=== PATIENT | female | born 1940 | race Hispanic/Latino ===

== ENCOUNTER 2025-01-06 20:37 | Inpatient (IN) | payer SELFPAY ==
[~2025-01-06] VITALS: Ht 157.5 cm; Wt 58.5 kg
--- NOTE | 2025-01-06 21:17 | ERN ---
General Chief Complaint: Mechanical Fall Stated Complaint: FALL Time Seen by MD: 20:46 Source: family History of Present Illness Initial Comments 84-year-old female past medical history hypertension and diabetes. She was taking a shower and immediately afterwards passed out falling onto her left side. Complaining of left wrist pain left hip pain and right shoulder pain. No history of dementia. Currently moaning in bed and not communicating well. Allergies: Coded Allergies: No Known Allergies (Unverified Allergy, Unknown, 01/06/25) Past Medical History Past Medical History: Diabetes-Type I, High Cholesterol, Hypertension Past Surgical History: None Constitutional: (-) chills, (-) diaphoresis, (-) fever, (-) malaise, (-) weakness, (-) other documentation EENTM: (-) eye pain, (-) blurred vision, (-) tearing, (-) double vision, (-) ear pain, (-) ear discharge, (-) nose pain, (-) nose congestion, (-) throat pain, (-) Throat swelling, (-) mouth pain, (-) tooth pain, (-) mouth swelling, (-) other documentation Respiratory: (-) cough, (-) orthopnea, (-) short of breath, (-) stridor, (-) wheezing, (-) other documentation Cardiovascular: (-) chest pain, (-) edema, (-) palpitations, (-) syncope, (-) dyspnea on exertion, (-) other documentation Gastrointestinal/Abdominal: (-) nausea, (-) vomiting, (-) diarrhea, (-) abdom inal pain, (-) abdominal distention, (-) constipation, (-) rectal bleeding, (-) dark stool/melena, (-) other documentation Musculoskeletal: (+) joint pain (Left wrist) Physical Exam General Appearance: (+) mild distress General Appearance comment Appears to be stated age. Head/Face Trauma: No Eye: bilateral eye normal inspection, bilateral eye PERRL, bilateral eye EOMI Ear, Nose, Throat: (-) hearing grossly normal, (-) normal ENT inspection, (-) moist mucous membraine, (-) normal pharynx, (-) normal TM, (-) abnormal TM, (-) pharyngeal erythema, (-) sinus drainange, (-) sinus pain, (-) tonsillar exudate, (-) tonsillar swelling, (-) nasal drip, (-) nasal congestion, (-) hearing decreased, (-) dry mucous membraine, (-) other documentation Neck Comment Patient's neck is in a C-collar. Respiratory: (+) chest non-tender, (+) lungs clear, (+) well ventilated Heart: (+) regular, (+) no gallop Vascular: (+) no edema, (+) normal peripheral pulse, (+) no JVD Gastrointestinal: (+) soft, (+) non-tender, (+) bowel sound present Results Laboratory and Microbiology Lab and Micro Result MDM Patient's left wrist is deformed I imagine she has a fracture. We will obtain plain films to rule this in her out. In addition I will get a head CT and a cervical spine CT as well as a right shoulder film. Cardiac workup initiated as well. Patient's CT scan of her head is negative CT scan of her neck is negative plain films of the left wrist shows a fracture in the distal radius. The right shoulder and chest x-ray plain films are also negative. Patient's lab work comes back with a normal CBC. Chemistry panel shows mild hyponatremia hypo kalemia but also evidence of an acute kidney injury with a creatinine of 1.3 and a BUN of 24. Troponin is negative blood glucose is 300. Based on the acute kidney injury performed an ultrasound of the patient's IVC and it did collapse with full breath and even with minimal breathing. I have bolused the patient a L of LR. I discussed the patient with the hospitalist service and they have agreed to admit her. ED Course Joint Reduction Joint Reduction : Conscious Sedation: No Reduction Attempts: 1 Pre-Procedure NV Exam: Yes Post-Procedure NV Exam: Yes Progress Patient has an obvious deformity in her left wrist. Plain films show a distal radial fracture. Twenty cc of lidocaine injected and joint distracted distally. Patient placed in a volar splint and a sling. DX & DISP Disposition: Inpatient Departure Impression: Primary Impression: ELIZABETH (acute kidney injury) Additional Impressions: Closed left radial fracture, Left ulnar fracture Condition: Stable Referrals: NONE (PCP) DONATO GUERRERO MD Jan 06, 2025 21:17
[2025-01-06 21:41] LABS: IMMATURE GRANULOCYTE ABSOLUTE 0.05 K/uL (0-1); NUCLEATED RED BLOOD CELLS 0.0 % (0.0-0.19); PLATELET COUNT (AUTO) 229 K/uL (130-400); RED BLOOD CELL COUNT(AUTO) 4.54 MIL/uL (4.00-5.50); RED CELL DISTRIBUTION WIDTH 12.4 % (11.0-15.5); WHITE BLOOD COUNT (AUTO) 7.7 K/uL (4.8-10.8)
[2025-01-06 21:50] LABS: CREATININE 1.3 mg/dL (0.5-1.0); GLOMERULAR FILTR. RATE CALC 41 mL/min (>90); GLUCOSE,RANDOM 304 mg/dL (70-105); SODIUM SERUM 135 mmol/L (136-145); UREA NITROGEN, BLOOD 24 mg/dL (7-18)
[2025-01-06 21:58] LABS: CREATINE KINASE, TOTAL 44 U/L (21-232)
[2025-01-06] MEDS: LIDOCAINE 1%-EPI 1:100,000 20 ML VIAL IJ SCH (22:30)
--- NOTE | 2025-01-06 22:37 | HMCIMG ---
EXAM: CT Cervical Spine without IV contrast. CLINICAL HISTORY: Fall, AMS. TECHNIQUE: Axial computed tomography images of the cervical spine without intravenous contrast. Sagittal and coronal reformatted images were generated. COMPARISON: None. FINDINGS: ALIGNMENT: Bony alignment is anatomic. DEGENERATIVE CHANGES: Multilevel cervical spondylosis with prominent marginal osteophytes. Mild disc space narrowing at the C5-6 and C6-7 levels with a circumferential disc bulge. No significant spinal canal or neural foraminal stenosis. Bilateral multilevel mild to moderate facet arthropathy, more pronounced at the C3-4 level on the right side. SOFT TISSUES: The prevertebral soft tissues are within normal limits. There are secretions in the right fossa of Rosenmuller. There is a 3 x 2.6 x 1.7 cm partially calcified exophytic hypodense nodule in the lower pole of the right lobe of the thyroid. BONES: No acute fracture or aggressively appearing osseous lesion. IMPRESSION: No acute cervical spine abnormality. Multilevel degenerative disc disease and facet arthropathy in the cervical spine. Small partially calcified exophytic hypodense nodule at the lower pole of the right lobe of the thyroid. Recommend sonographic correlation. /[place]
--- NOTE | 2025-01-06 22:40 | HMCIMG ---
EXAM: CT Head without IV contrast. CLINICAL HISTORY: Fall, AMS. TECHNIQUE: Axial computed tomography images of the head/brain without intravenous contrast. COMPARISON: None. FINDINGS: BRAIN: No evidence of acute hemorrhage, midline shift, or extra-axial collections. Atrophy. Periventricular hypodensities, suggestive of mild to moderate chronic ischemic changes secondary to small vessel disease. VENTRICLES: No hydrocephalus. ORBITS: The orbits are unremarkable. SINUSES AND MASTOIDS: The paranasal sinuses and mastoid air cells are clear. BONES: No fracture. SOFT TISSUES: Unremarkable. IMPRESSION: No acute intracranial abnormality. Mild to moderate chronic ischemic changes secondary to small vessel disease. /[place]
--- NOTE | 2025-01-06 22:52 | HMCIMG ---
EXAM: CR Chest, 1 view. CLINICAL HISTORY: Fall. Altered mental status. Dizziness. COMPARISON: None provided. FINDINGS: The lungs show no infiltrates or other acute findings. Mild subsegmental atelectasis in the left lung base. No pleural effusion or pneumothorax. The cardiomediastinal silhouette is within normal limits. Mild atherosclerotic aorta. No acute osseous abnormality. Mild osteopenia. Degenerative osseous changes. IMPRESSION: No acute cardiopulmonary pathology is evident. /[place]
--- NOTE | 2025-01-06 22:54 | HMCIMG ---
EXAM: CR Right Shoulder, 2 views. CLINICAL HISTORY: Fall. Rule out fracture. COMPARISON: None provided. FINDINGS: No acute fracture or aggressive appearing osseous lesion. Mild osteopenia. Mild to moderate osteoarthritis in the acromioclavicular and glenohumeral joints. Mild enthesopathy around the greater tubercle of the humerus. IMPRESSION: No acute bony abnormality is evident. Degenerative changes. /[place]
--- NOTE | 2025-01-06 22:56 | HMCIMG ---
EXAM: CR Left Wrist, 3 views CLINICAL HISTORY: Fall. Rule out fracture. COMPARISON: None provided. FINDINGS: Comminuted, displaced, acute fracture around the distal end of the radius with articular surface extension and dorsal tilt of the distal segment. Acute displaced fracture in the ulnar styloid process. Diffuse soft tissue swelling around the wrist. Mild osteopenia. Mild osteoarthritis. Atherosclerotic vascular calcifications. The carpal alignment is maintained. IMPRESSION: Comminuted, displaced, acute fracture around the distal end of the radius with articular surface extension and dorsal tilt of the distal segment. Acute displaced fracture in the ulnar styloid process. /[place]
--- NOTE | 2025-01-06 23:27 | HMCIMG ---
EXAM: CR Left Elbow, 2 views. CLINICAL HISTORY: GLF. COMPARISON: None provided. FINDINGS: No acute fracture or aggressive appearing osseous lesion. Mild osteoarthritis. No radiographic evidence of joint effusion. Scattered atherosclerotic vascular calcifications around the forearm region. IMPRESSION: No acute bony abnormality is evident. Mild osteoarthritis. /[place]
--- NOTE | 2025-01-06 23:42 | HMCIMG ---
EXAM: CR Left Forearm, 3 Views. CLINICAL HISTORY: GLF. COMPARISON: None provided. FINDINGS: Comminuted, displaced, acute fracture around the distal end of the radius with articular surface extension and dorsal tilt of the distal segment. Acute displaced fracture in the ulnar styloid process. Diffuse soft tissue swelling around the wrist. Mild osteopenia. Mild osteoarthritis. Atherosclerotic vascular calcifications. The remaining bones are intact. IMPRESSION: Comminuted, displaced, acute fracture around the distal end of the radius with articular surface extension and dorsal tilt of the distal segment. Acute displaced fracture in the ulnar styloid process. /[place]
[2025-01-06] MEDS: LACTATED RINGERS 1000ML IV STA (23:49)
[2025-01-07] VITALS (7 sets, daily range): BP systolic 137–159; BP diastolic 70–83; PULSE 63–74; RESP 16–20; TEMP 98.3–98.7; O2SAT 95–96
--- NOTE | 2025-01-07 01:22 | HMCIMG ---
EXAM: CR Left Wrist, 2 views CLINICAL HISTORY: Postreduction. COMPARISON: 01/06/2025. FINDINGS: Comminuted, displaced, acute fracture around the distal end of the radius with articular surface extension and dorsal tilt of the distal segment. Acute displaced fracture in the ulnar styloid process. Diffuse soft tissue swelling around the wrist. Mild osteopenia. Mild osteoarthritis. Atherosclerotic vascular calcifications. The carpal alignment is maintained. An immobilizing slab is in place. IMPRESSION: Comminuted, displaced, acute fracture around the distal end of the radius with articular surface extension and dorsal tilt of the distal segment. Acute displaced fracture in the ulnar styloid process. There is no significant change in post-reduction fracture alignment. /[place]
[2025-01-07] MEDS ORDERED: ALBUTEROL 0.083% 2.5 MG/3 ML INH IH PRN (01:30)
[2025-01-07] MEDS ORDERED: PoTASSium chloRIDE 20MEQ ER 20 MEQ ERTAB PO PRN (01:30)
[2025-01-07] MEDS ORDERED: PoTASSium chl 10% ELIXIR 20MEQ 20 MEQ/15 ML UDCUP PO PRN (01:30)
--- NOTE | 2025-01-07 01:38 | HP ---
[facility] HISTORY & PHYSICAL Date Patient Seen: Jan 07, 2025 Time of Visit: 01:30 Supervising Physician: Dr. Marylu Batres Primary Care Physician: Dr. Mendiola Outpatient Specialists: [ ] Inpatient Consults: [Ortho Services PROBLEM LIST: Ground level fall, POA Left radial fracture, x-ray showed Comminuted, displaced, acute fracture around the distal end of the radius with articular surface extension and dorsal tilt of the distal segment. POA Left ulnar fracture, POA Acute kidney injury, likely related to volume depletion from poor p.o. intake, POA DM type 2 with hyperglycemia Hyperlipidemia, POA History of hypertension, POA Plan: Admit to medical-surgical floor VS per unit protocol Keep patient NPO Multimodal pain relief Complete bedrest for now Orthopedic consult in a.m. Keep systolic blood pressure less than 160 P.r.n. hydralazine and labetalol Keep serum glucose less than 150 Replete electrolyte accordingly Continue LR at 75 cc an hour CBC, CMP, magnesium level daily Bilateral SCDs HPI: 84-year-old female with past medical history of hypertension, DM type 2, hyperlipidemia, who presented to ER as a trauma alert via EMS following ground level fall at home. Per report patient fell while she is taking shower, there is no reported loss of consciousness, use of aspirin or any anticoagulation. Afterwards patient developed acute pain to left arm, was then brought to ED for further medical evaluation. In ED stat CT of the head was done showed no acute intracranial abnormality, other pertinent imaging showed no acute injury however her left arm x-ray showed comminuted displaced acute fracture around the distal end of the radius with articular surface extension and dorsal tilt of the distal segment, there is also acute displaced fracture in the ulnar styloid process. Her initial CBC showed no acute infection or anemia, however her CMP showed mild ELIZABETH, with normal electrolytes level. Patient was seen and examined in ED with daughter present at bedside. Patient is Turkish-speaking only however daughter is able to translate during evaluation. ROS is limited due to sedation. No history of smoking, alcohol intake, or illicit drug use. PAST MEDICAL HX: see above PAST SURGICAL HX: noncontributory SOCIAL HISTORY: No tobacco, ETOH, or illicit drug use Coded Allergies: No Known Allergies (Unverified Allergy, Unknown, 01/06/25) REVIEW OF SYSTEMS: 12 point ROS reviewed with patient. Pertinent positives mentioned above. Otherwise negative. PHYSICAL EXAM: GENERAL: Lethargic, arousable, we will follow commands HEENT: EOMI, Sclera non icteric, moist mucosa NECK: Supple, no JVD, trachea midline LUNGS: Clear breath sounds bilaterally. No wheezes HEART: Regular rate and rhythm. Normal S1 and S2, without murmurs ABD: Abdomen soft, nontender. Bowel sounds present EXT: No clubbing cyanosis or edema, with arm sling and posterior arm cast to left arm NEURO: Lethargic Vital Signs (last 8hr) Date Time Temp Pulse Resp B/P (MAP) Pulse Ox O2 Delivery O2 Flow Rate FiO2 01/07/25 00:38 84 17 141/67 96 Room Air* 0 21 01/07/25 00:32 81 17 142/71 96 Room Air* 0 21 01/07/25 00:31 79 19 136/61 96 Room Air* 0 21 01/06/25 20:43 97.9 67 18 163/85 98 Room Air LABS: Hematology Labs: Test 01/06/25 21:34 Range/Units White Blood Count 7.7 4.8-10.8 K/uL Red Blood Count 4.54 4.00-5.50 MIL/uL Hemoglobin 13.8 12.0-16.0 g/dL Hematocrit 40.0 36-48 % Mean Corpuscular Volume 88.1 79-99 fL Mean Corpuscular Hemoglobin 30.4 27.0-33.0 pg Mean Corpuscular Hemoglobin Concent 34.5 32.0-36.0 g/dL Red Cell Distribution Width 12.4 11.0-15.5 % Platelet Count 229 130-400 K/uL Mean Platelet Volume 10.1 7.5-10.5 fL Immature Granulocyte % (Auto) 0.6 0-1 % Neutrophils (%) (Auto) 62.6 40.0-77.0 % Lymphocytes (%) (Auto) 26.0 21.0-51.0 % Monocytes (%) (Auto) 9.5 3.0-13.0 % Eosinophils (%) (Auto) 0.9 0.0-8.0 % Basophils (%) (Auto) 0.4 0.0-5.0 % Neutrophils # (Auto) 4.8 1.8-7.7 K/uL Lymphocytes # (Auto) 2.0 1.0-4.8 K/uL Monocytes # (Auto) 0.7 0.1-1.0 K/uL Eosinophils # (Auto) 0.07 0.00-0.70 K/uL Basophils # (Auto) 0.03 0.00-0.20 K/uL Absolute Immature Granulocyte (auto 0.05 0-1 K/uL Nucleated Red Blood Cells 0.0 0.0-0.19 % Chemistry Labs: Test 01/06/25 21:34 01/06/25 20:46 Range/Units Sodium Level 135 L 136-145 mmol/L Potassium Level 3.5 3.5-5.1 mmol/L Chloride Level 95 L 101-111 mmol/L Carbon Dioxide Level 30 21-32 mmol/L Blood Urea Nitrogen 24 H 7-18 mg/dL Creatinine 1.3 H 0.5-1.0 mg/dL Glomerular Filtration Rate Calc 41 >90 mL/min Random Glucose 304 H 70-105 mg/dL Total Calcium 9.3 8.5-10.1 mg/dL Total Creatine Kinase 44 21-232 U/L Troponin I High Sensitivity < 4.0 L 4-50 ng/L Whole Blood Glucose 292 H 70-110 MG/DL DIAGNOSTICS / RADIOLOGY RESULTS: EXAM: CR Left Forearm, 3 Views. CLINICAL HISTORY: GLF. COMPARISON: None provided. FINDINGS: Comminuted, displaced, acute fracture around the distal end of the radius with articular surface extension and dorsal tilt of the distal segment. Acute displaced fracture in the ulnar styloid process. Diffuse soft tissue swelling around the wrist. Mild osteopenia. Mild osteoarthritis. Atherosclerotic vascular calcifications. The remaining bones are intact. IMPRESSION: Comminuted, displaced, acute fracture around the distal end of the radius with articular surface extension and dorsal tilt of the distal segment. Acute displaced fracture in the ulnar styloid process. /[place] PLAN NEURO: Minimize central acting medications as possible. Maintain fall precautions, adequate lighting during the day PULMONARY: Supplemental 02 as needed. Maintain aspiration precautions at all times CARDIOVASCULAR: Follow hemodynamics. Vital signs per facility protocol GI & NUTRITION: Continue with nutritional support. Continue stool softeners and laxatives as needed. KIDNEYS & ELECTROLYTES: Strict monitoring of intake, output and overall fluid balance. Avoid nephrotoxic medications to the extent possible. Medications to be dosed according to renal function. Monitor electrolytes and replace as needed ENDOCRINE: Maintain blood glucose between 100-180 at all times. Hypoglycemia protocol in place INFECTIOUS DISEASE: Trend temperature, WBC and procalcitonin level Follow cultures, deescalate antibiotics as soon as possible. Panculture if new onset fever ONCOLOGY/HEMATOLOGY/COAGULATION: Monitor for s/s of bleeding Monitor hemoglobin, coagulation studies as needed SKIN: Pressure ulcer prevention per facility protocol Specialty mattress ORTHO/REHAB: Continue PT/OT Prophylaxis: Continue GI and DVT prophylaxis Code Status: Full Resuscitation Disposition: TBD Supervising physician: Dr. Marylu ESPINOZA,MARKELL Roy [facility] Jan 07, 2025 01:38
--- NOTE | 2025-01-07 01:40 | EKG ---
[facility] Test Date: 2025-01-06 Test Time: 21:04:17 Pat Name: HONG HAIDER Department: [facility]IP Room: 426 Gender: F Apartment Coordinator: [id number] : [id number] Requested By: DONATO GUERRERO Order Number: [id number] Reading MD: Venkata Luong Measurements Intervals [place] Rate: 64 P: 31 MA: 140 QRS: -10 QRSD: 89 T: 55 QT: 419 QTc: 434 Interpretive Statements Sinus rhythm Inferior infarct, old No previous ECG available for comparison Electronically Signed On 01-07-2025 18:29:57 CDT by Venkata Luong Please click the below link to view image of tracing.
[2025-01-07] MEDS: LIDOCAINE 1%-EPI 1:100,000 20 ML VIAL IJ ONE (01:57)
[2025-01-07] MEDS: LACTATED RINGERS 1000ML 1,000 ML IV SCH (02:05)
[2025-01-07] MEDS ORDERED: INSU200I4 SQ (04:35)
[2025-01-07] MEDS ORDERED: HYDR12.54 PO (04:35)
--- NOTE | 2025-01-07 10:49 | PN ---
[facility] PROGRESS NOTE Date Patient Seen: Jan 07, 2025 Time of Visit: 10:24 Supervising Physician: Dr. Ryan Ariza Primary Care Physician: Dr. Isaac Mendiola Outpatient Specialists: [ ] Inpatient Consults: Dr. Shahrzad Tam (orthopedic) PROBLEM LIST: Syncope resulting in Ground level fall, POA Left radial fracture, x-ray showed Comminuted, displaced, acute fracture around the distal end of the radius with articular surface extension and dorsal tilt of the distal segment. POA Left ulnar fracture, POA Acute kidney injury, likely related to volume depletion from poor p.o. intake, POA CHRONIC PROBLEM LIST: DM type 2 with hyperglycemia Hyperlipidemia, History of hypertension, Plan: Telemetry. Consult orthopedic: Dr. Shahrzad Tam Diagnostic tests: Echocardiogram, US carotid bilateral duplex Admit to medical-surgical floor Diet: NPO, pending surgical evaluation Acute kidney injury: NS 75 mL/HR GI prophylaxis Protonix 40 mg IV Q 24 hours DVT prophylaxis SCDs bilateral, after surgical evaluation if no surgery plan patient was started on anticoagulation therapy A.m. labs ordered INTERVAL HISTORY: 84-year-old female with past medical history of hypertension, DM type 2, hyperlipidemia, who presented to ER as a trauma alert via EMS following ground level fall at home. Per report patient fell while she is taking shower, there is no reported loss of consciousness, use of aspirin or any anticoagulation. Afterwards patient developed acute pain to left arm, was then brought to ED for further medical evaluation. In ED stat CT of the head was done showed no acute intracranial abnormality, other pertinent imaging showed no acute injury however her left arm x-ray showed comminuted displaced acute fracture around the distal end of the radius with articular surface extension and dorsal tilt of the distal segment, there is also acute displaced fracture in the ulnar styloid process. Her initial CBC showed no acute infection or anemia, however her CMP showed mild ELIZABETH, with normal electrolytes level. Patient was seen and examined in ED with daughter present at bedside. Patient is [place]an-speaking only however daughter is able to translate during evaluation. ROS is limited due to sedation. No history of smoking, alcohol intake, or illicit drug use. 01/07-patient was seen and assessed while resting in bed with the head of the bed elevated. Awake, alert, and oriented and in no acute distress. Accompanied by DOROTEO Steinberg patient at bedside. Patient's daughter reports that the patient fell lightheadedness, syncopal yesterday prior to the ground level resulting in fracture left ulnar. Patient takes blood pressure medicine patient has had no adjustments to it primary care provider's Dr. Isaac Mendiola. Patient's has had extremely elevated blood glucose levels per daughter's report. Nursing staff report no adverse events occurring overnight. Consults to orthopedic Dr. Tam. Ordered echocardiogram portable bedside and US carotid bilateral duplex. Depending on the results or if the patient we will require surgical i ntervention, then Cardiology will be consulted if cardiac clearance is needed. REVIEW OF SYSTEMS: 12 point ROS reviewed with patient. Pertinent positives mentioned above. Otherwise negative. PHYSICAL EXAM: GENERAL: Lethargic, arousable, we will follow commands HEENT: EOMI, Sclera non icteric, moist mucosa NECK: Supple, no JVD, trachea midline LUNGS: Clear breath sounds bilaterally. No wheezes HEART: Regular rate and rhythm. Normal S1 and S2, without murmurs ABD: Abdomen soft, nontender. Bowel sounds present EXT: No clubbing cyanosis or edema, with arm sling and posterior arm cast to left arm NEURO: Lethargic Vital Signs (last 8hr) Date Time Temp Pulse Resp B/P (MAP) Pulse Ox O2 Delivery O2 Flow Rate FiO2 01/07/25 08:21 98.8 65 16 137/80 Room Air 01/07/25 06:21 Room Air* 0 01/07/25 04:45 63 18 N/A Room Air 0.0 01/07/25 03:30 98.2 69 18 137/70 92 Room Air LABS: Hematology Labs: Test 01/06/25 21:34 Range/Units White Blood Count 7.7 4.8-10.8 K/uL Red Blood Count 4.54 4.00-5.50 MIL/uL Hemoglobin 13.8 12.0-16.0 g/dL Hematocrit 40.0 36-48 % Mean Corpuscular Volume 88.1 79-99 fL Mean Corpuscular Hemoglobin 30.4 27.0-33.0 pg Mean Corpuscular Hemoglobin Concent 34.5 32.0-36.0 g/dL Red Cell Distribution Width 12.4 11.0-15.5 % Platelet Count 229 130-400 K/uL Mean Platelet Volume 10.1 7.5-10.5 fL Immature Granulocyte % (Auto) 0.6 0-1 % Neutrophils (%) (Auto) 62.6 40.0-77.0 % Lymphocytes (%) (Auto) 26.0 21.0-51.0 % Monocytes (%) (Auto) 9.5 3.0-13.0 % Eosinophils (%) (Auto) 0.9 0.0-8.0 % Basophils (%) (Auto) 0.4 0.0-5.0 % Neutrophils # (Auto) 4.8 1.8-7.7 K/uL Lymphocytes # (Auto) 2.0 1.0-4.8 K/uL Monocytes # (Auto) 0.7 0.1-1.0 K/uL Eosinophils # (Auto) 0.07 0.00-0.70 K/uL Basophils # (Auto) 0.03 0.00-0.20 K/uL Absolute Immature Granulocyte (auto 0.05 0-1 K/uL Nucleated Red Blood Cells 0.0 0.0-0.19 % Chemistry Labs: Test 01/07/25 05:59 01/06/25 21:34 Range/Units Whole Blood Glucose 246 H 70-110 MG/DL Sodium Level 135 L 136-145 mmol/L Potassium Level 3.5 3.5-5.1 mmol/L Chloride Level 95 L 101-111 mmol/L Carbon Dioxide Level 30 21-32 mmol/L Blood Urea Nitrogen 24 H 7-18 mg/dL Creatinine 1.3 H 0.5-1.0 mg/dL Glomerular Filtration Rate Calc 41 >90 mL/min Random Glucose 304 H 70-105 mg/dL Total Calcium 9.3 8.5-10.1 mg/dL Total Creatine Kinase 44 21-232 U/L Troponin I High Sensitivity < 4.0 L 4-50 ng/L DIAGNOSTICS / RADIOLOGY RESULTS: [ ] PLAN NEURO: Minimize central acting medications as possible. Maintain fall precautions, adequate lighting during the day PULMONARY: Supplemental 02 as needed. Maintain aspiration precautions at all times CARDIOVASCULAR: Follow hemodynamics. Vital signs per facility protocol GI & NUTRITION: Continue with nutritional support. Continue stool softeners and laxatives as needed. KIDNEYS & ELECTROLYTES: Strict monitoring of intake, output and overall fluid balance. Avoid nephrotoxic medications to the extent possible. Medications to be dosed according to renal function. Monitor electrolytes and replace as needed ENDOCRINE: Maintain blood glucose between 100-180 at all times. Hypoglycemia protocol in place INFECTIOUS DISEASE: Trend temperature, WBC and procalcitonin level Follow cultures, deescalate antibiotics as soon as possible. Panculture if new onset fever ONCOLOGY/HEMATOLOGY/COAGULATION: Monitor for s/s of bleeding Monitor hemoglobin, coagulation studies as needed SKIN: Pressure ulcer prevention per facility protocol Specialty mattress ORTHO/REHAB: Continue PT/OT Prophylaxis: Continue GI and DVT prophylaxis Code Status: Full Resuscitation Disposition: BALJIT HERNANDEZ [facility] Jan 07, 2025 10:48
--- NOTE | 2025-01-07 12:53 | CONS ---
CONSULTATION NOTE Date of Service: Jan 07, 2025 Reason for Consultation: Left distal radius and ulna styloid fracture Requesting Physician: [ ] HISTORY OF PRESENT ILLNESS: 84-year-old right-hand dominant female status post ground level fall after becoming dizzy. patient has sustained an injury to the left wrist and was found in the emergency room to have a dorsally angulated left distal radius fracture with the ulnar styloid fracture. Orthopedics was consulted for the management of this. REVIEW OF SYSTEMS CONSTITUTIONAL: Denies fever, chills, or fatigue. HEAD/FACE: No signs of trauma. EENT: Denies eye pain, blurred vision, double vision, or light sensitivity. RESPIRATORY: Denies shortness of breath, cough, wheezing CARDIOVASCULAR: Denies chest pain, palpitation, syncope. Reports dizziness GASTROINTESTINAL/ABDOMINAL: Denies abdominal pain, constipation, diarrhea, nausea or vomiting GENITOURINARY: Denies dysuria or hematuria. MUSCULOSKELETAL: reports joint pain, tenderness, or trauma. INTEGUMENTARY: Denies rash or itchiness NEUROLOGICAL/PSYCH: Denies anxiety, depression, heat or cold intolerance. PAST MEDICAL HISTORY: Diabetes, hypertension, hyperlipidemia PAST SURGICAL HISTORY: Noncontributory PAST SOCIAL HISTORY: Right-hand dominant lives with daughter. Negative x3 FAMILY HISTORY: Noncontributory Coded Allergies: No Known Allergies (Unverified Allergy, Unknown, 01/06/25) PHYSICAL EXAM EYES: Anicteric. HENT: Moist Oral mucosa NECK: Supple LUNGS: Nonlabored breathing CARDIOVASCULAR: Regular rate ABDOMEN: Nondistended CENTRAL NERVOUS SYSTEM: Awake, alert, oriented x 3. No focal deficits. SKIN: No lacerations, no abrasions, no ecchymosis LYMPHATICS: No peripheral lymphadenopathy MUSCULOSKELETAL: Left upper extremity with a volar resting splint in place across distal radius. Patient wiggles them slightly but not definitive function of AIN or PIN nerves. Ulnar motor intact. Sensation intact to light touch in median ulnar and radial nerve distributions. Brisk capillary refill x5. Splint material blocking any flexion of the digits. EXTREMITIES: No cyanosis or clubbing BACK: Deferred GENITOURINARY: Deferred Vital Sign (Last 24 Hours) 01/07/25 01/07/25 01/07/25 03:30 06:21 08:21 Temp 98.8 Pulse 65 Resp 16 B/P (MAP) 137/80 Pulse Ox 92 O2 Delivery Room Air O2 Flow Rate 0 FiO2 21 LABS: Laboratory: Test 01/07/25 11:06 01/06/25 21:34 Range/Units Whole Blood Glucose 105 # 70-110 MG/DL White Blood Count 7.7 4.8-10.8 K/uL Red Blood Count 4.54 4.00-5.50 MIL/uL Hemoglobin 13.8 12.0-16.0 g/dL Hematocrit 40.0 36-48 % Mean Corpuscular Volume 88.1 79-99 fL Mean Corpuscular Hemoglobin 30.4 27.0-33.0 pg Mean Corpuscular Hemoglobin Concent 34.5 32.0-36.0 g/dL Red Cell Distribution Width 12.4 11.0-15.5 % Platelet Count 229 130-400 K/uL Mean Platelet Volume 10.1 7.5-10.5 fL Immature Granulocyte % (Auto) 0.6 0-1 % Neutrophils (%) (Auto) 62.6 40.0-77.0 % Lymphocytes (%) (Auto) 26.0 21.0-51.0 % Monocytes (%) (Auto) 9.5 3.0-13.0 % Eosinophils (%) (Auto) 0.9 0.0-8.0 % Basophils (%) (Auto) 0.4 0.0-5.0 % Neutrophils # (Auto) 4.8 1.8-7.7 K/uL Lymphocytes # (Auto) 2.0 1.0-4.8 K/uL Monocytes # (Auto) 0.7 0.1-1.0 K/uL Eosinophils # (Auto) 0.07 0.00-0.70 K/uL Basophils # (Auto) 0.03 0.00-0.20 K/uL Absolute Immature Granulocyte (auto 0.05 0-1 K/uL Nucleated Red Blood Cells 0.0 0.0-0.19 % Sodium Level 135 L 136-145 mmol/L Potassium Level 3.5 3.5-5.1 mmol/L Chloride Level 95 L 101-111 mmol/L Carbon Dioxide Level 30 21-32 mmol/L Blood Urea Nitrogen 24 H 7-18 mg/dL Creatinine 1.3 H 0.5-1.0 mg/dL Glomerular Filtration Rate Calc 41 >90 mL/min Random Glucose 304 H 70-105 mg/dL Total Calcium 9.3 8.5-10.1 mg/dL Total Creatine Kinase 44 21-232 U/L Troponin I High Sensitivity < 4.0 L 4-50 ng/L DIAGNOSTICS / RADIOLOGY: Two views of the left wrist showing left distal radius fracture with dorsal angulation and ulnar styloid fracture. There is a loss of inclination and height. ASSESSMENT: Left Colles fracture in 84-year-old right-hand dominant female PLAN: Discussed with the patient and her family that we could treat this with surgery but that it may not be worth the risk of the procedure. She is diabetic and her sugars significantly elevated this time. Her distal radius fracture shows displacement but could heal with an acceptable parameters. Since this is her non dominant hand, we elected to treat her conservatively. She was placed into a sugar-tong splint on the floor. She can follow up at [facility] in 2-3 weeks to be transitioned to a short-arm cast. Patient will need pain control. Instructions to ice and elevate. Continue to work on finger range motion to prevent stiffness. CHRISTOPHER BENTLEY MD Jan 07, 2025 12:53
--- NOTE | 2025-01-07 13:46 | NUR ---
DCP:HOME Pt currently lives at home with her dgt. Pt does not have any DME, home health, or provider services. Pt states that she is able to complete ADLs independently. PCP is Dr. Isaac Mendiola and uses [facility] for any RX needs. At [place] pt will want to go home and family can assist with transportation. Addendum: 01/07/25 at 1349 by AYE LEONARD SS Amended: Links added.
--- NOTE | 2025-01-07 18:20 | HMCSR ---
APPROVED REPORT EXAM: Two-dimensional and M-mode echocardiogram with Doppler and color Doppler. INDICATION ICD: Syncopal event resulting in ground level fall, fracture left ulnar 2D Dimensions RVDd3.6 cmLVEF(%)53.5 (>50%)LVED Vol(simp.)55.0 mL IVSd0.9 (0.7-1.1cm)FS(%)27 %LVES Vol(simp.)23.0 mL LVDd3.9 (3.8-5.6cm)LA (2D)3.0 (1.6-4.0cm)LVEF(%, simp.)57 % PWd0.8 (0.7-1.1cm)Ao Root(2D)2.7 (2.0-3.7cm)LA ESV INDEX (BP)20.93 mL/m2 IVSs1.1 cmLVOT diam1.8 (1.8-2.4cm) LVDs2.9 (2.5-4.0cm)IVC diam1.3 cm PWs1.0 cm Deformation Strain Apical 4-17.8 % Apical 2-16.6 % Apical 3-18.7 % Global Strain-17.7 % M-Mode Dimensions EPSS0.3 cm LA (MM)3.2 (1.6-4.0cm) Ao Root(MM)2.6 (2.0-3.7cm) Aortic Valve AoV Vmax1.3 m/Kostas Peak GR7.2 mmHgLVOT Vmax0.9 m/s AoV VTI0.3 mAo Mean GR4.4 mmHgLVOT VTI0.22 m YAHIR (VMAX)1.74 cm2AVA (VTI) 1.9 cm2 Mitral Valve MV E Vmax77.4 cm/sDECEL Mayr949 ms MV A Dtao417.5 cm/sP 1/2 T36 ms E/A ratio0.7MVA (PHT)6.1 cm2 TDI E/E' Tsiopw64.4E/E' Ozzmpse55.4 Medial E' Peak V4.00 cm/sLateral E' Peak V4.46 cm/s Pulmonary Valve PV Vmax0.8 m/sPV VTI0.20 mPV Mean GR1.5 mmHg PV Peak GR2.8 mmHg Tricuspid Valve TR Vmax2.4 m/sRAP (EST) 3 kuWoYNWI11.5 mmHg TR Peak GR22.5 mmHg Left Ventricle The left ventricle is normal size. GLS -18.0% There is normal LV segmental wall motion. There is norm al left ventricular wall thickness. The LVEF is > 55%. 3D volume EF 58% The left ventricular diastoli c function is normal. Right Ventricle The right ventricle is normal size. The right ventricular systolic function is normal. Atria The left atrium size is normal. The right atrium size is normal. Aortic Valve Aortic valve is trileaflet, thickend with possible small vegetation on non coronary cusp. No aortic r egurgitation is present. There is no aortic valvular stenosis. Mitral Valve The mitral valve is normal in structure. There is trace of mitral valve regurgitation noted. There is no mitral valve stenosis. Tricuspid Valve The tricuspid valve is normal in structure. There is trace of tricuspid valve regurgitation noted. Pulmonic Valve Pulmonic valve is not well visualized. There is trace of pulmonic valvular regurgitation. Great Vessels The aortic root is normal in size. The IVC is normal in size and collapses >50% with inspiration. Pericardium There is no pericardial effusion. Other Information Quality : Adequate Conclusion The left ventricle is normal size. The LVEF is > 55% with normal LV segmental wall motion. The left ventricular diastolic function is normal. The right ventricular systolic function is normal. Both atria are normal in size. Aortic valve is trileaflet, thickend with possible small vegetation on non coronary cusp. There is no pericardial effusion. Consider SLADE if clinically indicated.
[2025-01-08] VITALS (7 sets, daily range): BP systolic 150–182; BP diastolic 71–86; PULSE 62–89; RESP 16–20; TEMP 98.1–98.3; O2SAT 92–96
[2025-01-08 04:36] LABS: IMMATURE GRANULOCYTE ABSOLUTE 0.04 K/uL (0-1); NUCLEATED RED BLOOD CELLS 0.0 % (0.0-0.19); PLATELET COUNT (AUTO) 171 K/uL (130-400); RED BLOOD CELL COUNT(AUTO) 3.64 MIL/uL (4.00-5.50); RED CELL DISTRIBUTION WIDTH 12.5 % (11.0-15.5); WHITE BLOOD COUNT (AUTO) 6.9 K/uL (4.8-10.8)
[2025-01-08 04:52] LABS: CREATININE 0.6 mg/dL (0.5-1.0); GLOMERULAR FILTR. RATE CALC 90.0 mL/min (>90); GLUCOSE,RANDOM 177.0 mg/dL (70-105); PHOSPHORUS 3.0 mg/dL (2.5-4.9); SODIUM SERUM 140.0 mmol/L (136-145); UREA NITROGEN, BLOOD 19.0 mg/dL (7-18)
[2025-01-08] MEDS: MAGNESIUM 2GM PREMIX 50ML 50 ML IV PRN (05:12)
--- NOTE | 2025-01-08 11:14 | PN ---
[facility] PROGRESS NOTE Date Patient Seen: Jan 08, 2025 Time of Visit: 11:14 Supervising Physician: Dr. Ryan Ariza Primary Care Physician: Dr. Isaac Mendiola Outpatient Specialists: [ ] Inpatient Consults: Dr. Shahrzad Tam (orthopedic) PROBLEM LIST: Syncope resulting in Ground level fall, POA Left radial fracture, x-ray showed Comminuted, displaced, acute fracture around the distal end of the radius with articular surface extension and dorsal tilt of the distal segment. POA Left ulnar fracture, POA Acute kidney injury, likely related to volume depletion from poor p.o. intake, POA CHRONIC PROBLEM LIST: DM type 2 with hyperglycemia Hyperlipidemia, History of hypertension, Plan: Telemetry. Consult orthopedic: Dr. Shahrzad Tam, no surgical interventions required, patient to follow up once discharged Diagnostic tests: Echocardiogram, US carotid bilateral duplex GI prophylaxis Protonix 40 mg IV Q 24 hours DVT prophylaxis SCDs bilateral A.m. labs ordered INTERVAL HISTORY: 84-year-old female with past medical history of hypertension, DM type 2, hyperlipidemia, who presented to ER as a trauma alert via EMS following ground level fall at home. Per report patient fell while she is taking shower, there is no reported loss of consciousness, use of aspirin or any anticoagulation. Afterwards patient developed acute pain to left arm, was then brought to ED for further medical evaluation. In ED stat CT of the head was done showed no acute intracranial abnormality, other pertinent imaging showed no acute injury however her left arm x-ray showed comminuted displaced acute fracture around the distal end of the radius with articular surface extension and dorsal tilt of the distal segment, there is also acute displaced fracture in the ulnar styloid process. Her initial CBC showed no acute infection or anemia, however her CMP showed mild ELIZABETH, with normal electrolytes level. Patient was seen and examined in ED with daughter present at bedside. Patient is Hungarian-speaking only however daughter is able to translate during evaluation. ROS is limited due to sedation. No history of smoking, alcohol intake, or illicit drug use. 01/07-patient was seen and assessed while resting in bed with the head of the bed elevated. Awake, alert, and oriented and in no acute distress. Accompanied by DOROTEO Steinberg patient at bedside. Patient's daughter reports that the patient fell lightheadedness, syncopal yesterday prior to the ground level resulting in fracture left ulnar. Patient takes blood pressure medicine patient has had no adjustments to it primary care provider's Dr. Isaac Mendiola. Patient's has had extremely elevated blood glucose levels per daughter's report. Nursing staff report no adverse events occurring overnight. Consults to orthopedic Dr. Tam. Ordered echocardiogram portable bedside and US carotid bilateral duplex. Depending on the results or if the patient we will require surgical intervention, then Cardiology will be consulted if cardiac clearance is needed. 01/08-examined and seen by myself. Patient is resting in bed high May's position with daughter present sitting in a chair to the left side of the patient's bed. Watching television both friendly and conversant. Awake alert and oriented in no acute distress is the patient. Reviewed and discussed with patient diagnostic tests results, echocardiogram: The left ventricle is normal size. The LVEF is > 55% with normal LV segmental wall motion. The left ventricular diastolic function is normal. The right ventricular systolic function is normal. Both atria are normal in size. Aortic valve is trileaflet, thickend with possible small vegetation on non coronary cusp. There is no pericardial effusion. Discussed and reviewed laboratory results and vital signs. Vital signs stable. Afebrile. Awaiting US carotid duplex DON results which is pending discharge. A.m. labs ordered for tomorrow REVIEW OF SYSTEMS: 12 point ROS reviewed with patient. Pertinent positives mentioned above. Otherwise negative. PHYSICAL EXAM: GENERAL: Lethargic, arousable, we will follow commands HEENT: EOMI, Sclera non icteric, moist mucosa NECK: Supple, no JVD, trachea midline LUNGS: Clear breath sounds bilaterally. No wheezes HEART: Regular rate and rhythm. Normal S1 and S2, without murmurs ABD: Abdomen soft, nontender. Bowel sounds present EXT: No clubbing cyanosis or edema, with arm sling and posterior arm cast to left arm NEURO: Lethargic Vital Signs (last 8hr) Date Time Temp Pulse Resp B/P (MAP) Pulse Ox O2 Delivery O2 Flow Rate FiO2 01/08/25 08:25 98.2 68 16 168/78 92 Room Air 01/08/25 08:02 92 Room Air* 0 21 01/08/25 04:00 98.1 67 20 150/76 94 Room Air LABS: Hematology Labs: Test 01/08/25 04:17 Range/Units White Blood Count 6.9 4.8-10.8 K/uL Red Blood Count 3.64 L 4.00-5.50 MIL/uL Hemoglobin 11.2 L 12.0-16.0 g/dL Hematocrit 32.3 L 36-48 % Mean Corpuscular Volume 88.7 79-99 fL Mean Corpuscular Hemoglobin 30.8 27.0-33.0 pg Mean Corpuscular Hemoglobin Concent 34.7 32.0-36.0 g/dL Red Cell Distribution Width 12.5 11.0-15.5 % Platelet Count 171 # 130-400 K/uL Mean Platelet Volume 10.2 7.5-10.5 fL Immature Granulocyte % (Auto) 0.6 0-1 % Neutrophils (%) (Auto) 57.6 40.0-77.0 % Lymphocytes (%) (Auto) 29.7 21.0-51.0 % Monocytes (%) (Auto) 10.5 3.0-13.0 % Eosinophils (%) (Auto) 1.3 0.0-8.0 % Basophils (%) (Auto) 0.3 0.0-5.0 % Neutrophils # (Auto) 4.0 1.8-7.7 K/uL Lymphocytes # (Auto) 2.0 1.0-4.8 K/uL Monocytes # (Auto) 0.7 0.1-1.0 K/uL Eosinophils # (Auto) 0.09 0.00-0.70 K/uL Basophils # (Auto) 0.02 0.00-0.20 K/uL Absolute Immature Granulocyte (auto 0.04 0-1 K/uL Nucleated Red Blood Cells 0.0 0.0-0.19 % Chemistry Labs: Test 01/08/25 05:35 01/08/25 04:17 01/06/25 21:34 Range/Units Whole Blood Glucose 195 H 70-110 MG/DL Sodium Level 140 136-145 mmol/L Potassium Level 3.9 3.5-5.1 mmol/L Chloride Level 101 101-111 mmol/L Carbon Dioxide Level 23 21-32 mmol/L Blood Urea Nitrogen 19 H 7-18 mg/dL Creatinine 0.6 0.5-1.0 mg/dL Glomerular Filtration Rate Calc 90 >90 mL/min Random Glucose 177 H 70-105 mg/dL Total Calcium 7.9 L 8.5-10.1 mg/dL Phosphorus Level 3.0 2.5-4.9 mg/dL Magnesium Level 1.70 L 1.80-2.40 mg/dL Total Creatine Kinase 44 21-232 U/L Troponin I High Sensitivity < 4.0 L 4-50 ng/L DIAGNOSTICS / RADIOLOGY RESULTS: REASON: Syncopal event resulting in ground level fall, fracture left ulnar ORDERING PHYSICIAN: BALJIT HUSAIN [facility] PROCEDURE: ECHO CMP - ECHO 2-D COMPLETE APPROVED REPORT EXAM: Two-dimensional and M-mode echocardiogram with Doppler and color Doppler. INDICATION ICD: Syncopal event resulting in ground level fall, fracture left ulnar 2D Dimensions RVDd 3.6 cm LVEF(%) 53.5 (>50%) LVED Vol(simp.) 55.0 mL IVSd 0.9 (0.7-1.1cm) FS(%) 27 % LVES Vol(simp.) 23.0 mL LVDd 3.9 (3.8-5.6cm) LA (2D) 3.0 (1.6-4.0cm) LVEF(%, simp.) 57 % PWd 0.8 (0.7-1.1cm) Ao Root(2D) 2.7 (2.0-3.7cm) LA ESV INDEX (BP) 20.93 mL/m2 IVSs 1.1 cm LVOT diam 1.8 (1.8-2.4cm) LVDs 2.9 (2.5-4.0cm) IVC diam 1.3 cm PWs 1.0 cm Deformation Strain Apical 4 -17.8 % Apical 2 -16.6 % Apical 3 -18.7 % Global Strain -17.7 % M-Mode Dimensions EPSS 0.3 cm LA (MM) 3.2 (1.6-4.0cm) Ao Root(MM) 2.6 (2.0-3.7cm) Aortic Valve AoV Vmax 1.3 m/s Ao Peak GR 7.2 mmHg LVOT Vmax 0.9 m/s AoV VTI 0.3 m Ao Mean GR 4.4 mmHg LVOT VTI 0.22 m YAHIR (VMAX) 1.74 cm2 YAHIR (VTI) 1.9 cm2 Mitral Valve MV E Vmax 77.4 cm/s DECEL Time 206 ms MV A Vmax 107.5 cm/s P 1/2 T 36 ms E/A ratio 0.7 MVA (PHT) 6.1 cm2 TDI E/E' Medial 19.4 E/E' Lateral 17.4 Medial E' Peak V 4.00 cm/s Lateral E' Peak V 4.46 cm/s Pulmonary Valve PV Vmax 0.8 m/s PV VTI 0.20 m PV Mean GR 1.5 mmHg PV Peak GR 2.8 mmHg Tricuspid Valve TR Vmax 2.4 m/s RAP (EST) 3 mmHg RVSP 25.5 mmHg TR Peak GR 22.5 mmHg Left Ventricle The left ventricle is normal size. GLS -18.0% There is normal LV segmental wall motion. There is normal left ventricular wall thickness. The LVEF is > 55%. 3D volume EF 58% The left ventricular diastolic function is normal. Right Ventricle The right ventricle is normal size. The right ventricular systolic function is normal. Atria The left atrium size is normal. The right atrium size is normal. Aortic Valve Aortic valve is trileaflet, thickend with possible small vegetation on non coronary cusp. No aortic regurgitation is present. There is no aortic valvular stenosis. Mitral Valve The mitral valve is normal in structure. There is trace of mitral valve regur gitation noted. There is no mitral valve stenosis. Tricuspid Valve The tricuspid valve is normal in structure. There is trace of tricuspid valve regurgitation noted. Pulmonic Valve Pulmonic valve is not well visualized. There is trace of pulmonic valvular regurgitation. Great Vessels The aortic root is normal in size. The IVC is normal in size and collapses >50% with inspiration. Pericardium There is no pericardial effusion. Other Information Quality : Adequate Conclusion The left ventricle is normal size. The LVEF is > 55% with normal LV segmental wall motion. The left ventricular diastolic function is normal. The right ventricular systolic function is normal. Both atria are normal in size. Aortic valve is trileaflet, thickend with possible small vegetation on non coronary cusp. There is no pericardial effusion. Consider SLADE if clinically indicated. DICTATED BY: JESUS NGUYEN MD DATE: 01/07/25 1112 ELECTRONICALLY SIGNED BY: JESUS NGUYEN MD DATE: 01/07/25 1820 PLAN NEURO: Minimize central acting medications as possible. Maintain fall precautions, adequate lighting during the day PULMONARY: Supplemental 02 as needed. Maintain aspiration precautions at all times CARDIOVASCULAR: Follow hemodynamics. Vital signs per facility protocol GI & NUTRITION: Continue with nutritional support. Continue stool softeners and laxatives as needed. KIDNEYS & ELECTROLYTES: Strict monitoring of intake, output and overall fluid balance. Avoid nephrotoxic medications to the extent possible. Medications to be dosed according to renal function. Monitor electrolytes and replace as needed ENDOCRINE: Maintain blood glucose between 100-180 at all times. Hypoglycemia protocol in place INFECTIOUS DISEASE: Trend temperature, WBC and procalcitonin level Follow cultures, deescalate antibiotics as soon as possible. Panculture if new onset fever ONCOLOGY/HEMATOLOGY/COAGULATION: Monitor for s/s of bleeding Monitor hemoglobin, coagulation studies as needed SKIN: Pressure ulcer prevention per facility protocol Specialty mattress ORTHO/REHAB: Continue PT/OT Prophylaxis: Continue GI and DVT prophylaxis Code Status: Full Resuscitation Disposition: BALJIT HERNANDEZ AGACNP Jan 08, 2025 11:14
[2025-01-08] MEDS ORDERED: MAGNESIUM 2GM PREMIX 50ML 50 ML IV PRN (11:30)
[2025-01-08] MEDS ORDERED: PHARMACY COMMUNICATION MISC SCH (12:00)
[2025-01-08] MEDS: LACTULOSE 20 GM/30 ML UDCUP PO ONE (18:12)
[2025-01-09] VITALS (7 sets, daily range): BP systolic 147–177; BP diastolic 67–88; PULSE 66–71; RESP 16–18; TEMP 98.3–98.4; O2SAT 94–96
[2025-01-09 04:48] LABS: IMMATURE GRANULOCYTE ABSOLUTE 0.04 K/uL (0-1); NUCLEATED RED BLOOD CELLS 0.0 % (0.0-0.19); PLATELET COUNT (AUTO) 200 K/uL (130-400); RED BLOOD CELL COUNT(AUTO) 4.16 MIL/uL (4.00-5.50); RED CELL DISTRIBUTION WIDTH 12.4 % (11.0-15.5); WHITE BLOOD COUNT (AUTO) 8.8 K/uL (4.8-10.8)
[2025-01-09 05:25] LABS: ASPARTATE AMINOTRANSFERASE 21.0 U/L (10-37); CREATININE 0.6 mg/dL (0.5-1.0); GLOMERULAR FILTR. RATE CALC 90.0 mL/min (>90); GLUCOSE,RANDOM 182.0 mg/dL (70-105); SODIUM SERUM 139.0 mmol/L (136-145); TOTAL PROTEIN, SERUM 7.2 g/dL (6.0-8.3); UREA NITROGEN, BLOOD 10.0 mg/dL (7-18)
[2025-01-09] MEDS ORDERED: INSULIN DEGLUDEC 15 UNIT SQ SCH (09:00)
--- NOTE | 2025-01-09 16:11 | HMCIMG ---
EXAM: US Duplex Bilateral Carotid and Vertebral Arteries. CLINICAL HISTORY: Syncopal event that led to a ground level fall and fracture of left ulnar TECHNIQUE: Real-time ultrasound scan of the bilateral carotid and vertebral arteries, 2-D espino scale, with color Doppler flow and spectral waveform analysis. COMPARISON: None provided. FINDINGS: RIGHT COMMON CAROTID ARTERY: Calcified plaque at the carotid bulb. No occlusion or significant stenosis. PSV = 45 cm/s RIGHT INTERNAL CAROTID ARTERY: No occlusion or significant stenosis. PSV = 69 cm/s RIGHT EXTERNAL CAROTID ARTERY: No occlusion or significant stenosis. PSV = 111 cm/s RIGHT VERTEBRAL ARTERY: Antegrade flow. PSV = 40 cm/s RIGHT ICA/CCA RATIO: Within normal limits (1.5). LEFT COMMON CAROTID ARTERY: Few calcified and non-calcified plaques present. No occlusion or significant stenosis. PSV = 57 cm/s LEFT INTERNAL CAROTID ARTERY: Few calcified and non-calcified plaques present. No occlusion or significant stenosis. PSV = 88 cm/s LEFT EXTERNAL CAROTID ARTERY: No occlusion or significant stenosis. PSV = 59 cm/s LEFT VERTEBRAL ARTERY: Antegrade flow. PSV = 46 cm/s LEFT ICA/CCA RATIO: Within normal limits (1.5). SOFT TISSUES: No incidental abnormalities. IMPRESSION: 1. No hemodynamically significant stenosis in the bilateral carotid or vertebral arteries. /[place]
--- NOTE | 2025-01-09 16:41 | DS ---
[facility] DISCHARGE SUMMARY Date Patient Seen: Jan 09, 2025 Time of Visit: 16:31 Supervising Physician: Dr. Ryan Ariza Primary Care Physician: Dr. Isaac Mendiola Outpatient Specialists: [ ] Inpatient Consults: Dr. Shahrzad Tam (orthopedic) PROBLEM LIST: Syncope resulting in Ground level fall, POA -Echocardiogram:LVEF > 55%, with normal LV segmental wall motion. -US carotid bilateral duplex:No hemodynamically significant stenosis in the bilateral carotid or vertebral arteries Left radial fracture, x-ray showed Comminuted, displaced, acute fracture around the distal end of the radius with articular surface extension and dorsal tilt of the distal segment. POA Left ulnar fracture, POA Acute kidney injury, likely related to volume depletion from poor p.o. intake, POA, resolved CHRONIC PROBLEM LIST: DM type 2 with hyperglycemia Hyperlipidemia, History of hypertension, Plan: Telemetry. Consult orthopedic: Dr. Shahrzad Tam, no surgical interventions required, patient to follow up once discharged Diagnostic tests: Echocardiogram, US carotid bilateral duplex GI prophylaxis Protonix 40 mg IV Q 24 hours DVT prophylaxis SCDs bilateral HOSPITAL COURSE: Patient presented to the hospital, status post syncopal event at home resulting in Left radial fracture, x-ray showed Comminuted, displaced, acute fracture ar ound the distal end of the radius with articular surface extension and dorsal tilt of the distal segment with a ulnar fracture. Dr. Shahrzad Tam : Discussed with the patient and her family that we could treat this with surgery but that it may not be worth the risk of the procedure. She is diabetic and her sugars significantly elevated this time. Her distal radius fracture shows displacement but could heal with an acceptable parameters. Since this is her non dominant hand, we elected to treat her conservatively. Syncopal workup included echocardiogram:The left ventricle is normal size. The LVEF is > 55% with normal LV segmental wall motion. The patient is hemodynamically stable. Normal Echo, Normal carotids, Normal CT Head wo contrast, and normal telemetry during during hospitalization.. Additionally patient was educated on not being left alone also discussed with the patient's daughter that we did not want the patient to do activities of daily living or to be left by herself. There was agreement to this that the patient would not be left alone and the patient would not be using in motor machinery or driving car and they also agreed to that to. The patient's PCP has been contacted and the patient will have an appointment tomorrow afternoon which is Friday, January 10, [address] Isaac Mendiola. Has been cleared by ortho to where she can be discharged home using the sling she will be provided discharge instructions and follow up appointment with Dr. Shahrzad Tam within 2-3 weeks for a short cast. The patient and family are in agreement with the discharge plan which includes following up with primary care provider within 2-3 days for a wellness check, Dr. Isaac Mendiola. HPI (per admitting provider) 84-year-old female with past medical history of hypertension, DM type 2, hyperlipidemia, who presented to ER as a trauma alert via EMS following ground level fall at home. Per report patient fell while she is taking shower, there is no reported loss of consciousness, use of aspirin or any anticoagulation. Afterwards patient developed acute pain to left arm, was then brought to ED for further medical evaluation. In ED stat CT of the head was done showed no acute intracranial abnormality, other pertinent imaging showed no acute injury however her left arm x-ray showed comminuted displaced acute fracture around the distal end of the radius with articular surface extension and dorsal tilt of the distal segment, there is also acute displaced fracture in the ulnar styloid process. Her initial CBC showed no acute infection or anemia, however her CMP showed mild ELIZABETH, with normal electrolytes level. Patient was seen and examined in ED with daughter present at bedside. Patient is Guamanian-speaking only however daughter is able to translate during evaluation. ROS is limited due to sedation. No history of smoking, alcohol intake, or illicit drug use. The patient was treated for the following problems: ACTIVE PROBLEM LIST FOR THE HOSPITALIZATION: Syncope resulting in Ground level fall, POA -Echocardiogram:LVEF > 55%, with normal LV segmental wall motion. -US carotid bilateral duplex:No hemodynamically significant stenosis in the bilateral carotid or vertebral arteries Left radial fracture, x-ray showed Comminuted, displaced, acute fracture around the distal end of the radius with articular surface extension and dorsal tilt of the distal segment. POA Left ulnar fracture, POA Acute kidney injury, likely related to volume depletion from poor p.o. intake, POA, resolved CHRONIC PROBLEMS: continue previous management per PCP unless otherwise indicated DM type 2 with hyperglycemia Hyperlipidemia, History of hypertension, [employer] FINDINGS/RECOMMENDATIONS: [ ] Dr. Shahrzad Tam : Discussed with the patient and her family that we could treat this with surgery but that it may not be worth the risk of the procedure. She is diabetic and her sugars significantly elevated this time. Her distal radius fracture shows displacement but could heal with an acceptable parameters. Since this is her non dominant hand, we elected to treat her conservatively. She was placed into a sugar-tong splint on the floor. She can follow up at ortho Care in 2-3 weeks to be transitioned to a short-arm cast. Patient will need pain control. Instructions to ice and elevate. Continue to work on finger range motion to prevent stiffness. PROCEDURES: as mentioned above REASON: Syncopal event that led to a ground level fall and fracture of left ulnar ORDERING PHYSICIAN: BALJIT HUSAIN [facility] PROCEDURE: CAROTID - US CAROTID DUPLEX EXAM: US Duplex Bilateral Carotid and Vertebral Arteries. CLINICAL HISTORY: Syncopal event that led to a ground level fall and fracture of left ulnar TECHNIQUE: Real-time ultrasound scan of the bilateral carotid and vertebral arteries, 2-D espino scale, with color Doppler flow and spectral waveform analysis. COMPARISON: None provided. FINDINGS: RIGHT COMMON CAROTID ARTERY: Calcified plaque at the carotid bulb. No occlusion or significant stenosis. PSV = 45 cm/s RIGHT INTERNAL CAROTID ARTERY: No occlusion or significant stenosis. PSV = 69 cm/s RIGHT EXTERNAL CAROTID ARTERY: No occlusion or significant stenosis. PSV = 111 cm/s RIGHT VERTEBRAL ARTERY: Antegrade flow. PSV = 40 cm/s RIGHT ICA/CCA RATIO: Within normal limits (1.5). LEFT COMMON CAROTID ARTERY: Few calcified and non-calcified plaques present. No occlusion or significant stenosis. PSV = 57 cm/s LEFT INTERNAL CAROTID ARTERY: Few calcified and non-calcified plaques present. No occlusion or significant stenosis. PSV = 88 cm/s LEFT EXTERNAL CAROTID ARTERY: No occlusion or significant stenosis. PSV = 59 cm/s LEFT VERTEBRAL ARTERY: Antegrade flow. PSV = 46 cm/s LEFT ICA/CCA RATIO: Within normal limits (1.5). SOFT TISSUES: No incidental abnormalities. IMPRESSION: 1. No hemodynamically significant stenosis in the bilateral carotid or vertebral arteries. /[place] ANNA: FALL, AMS ORDERING PHYSICIAN: DONATO GUERRERO MD PROCEDURE: C SPIN WO - CT CERVICAL SPINE W/O CONTRAST EXAM: CT Cervical Spine without IV contrast. CLINICAL HISTORY: Fall, AMS. TECHNIQUE: Axial computed tomography images of the cervical spine without intravenous contrast. Sagittal and coronal reformatted images were generated. COMPARISON: None. FINDINGS: ALIGNMENT: Bony alignment is anatomic. DEGENERATIVE CHANGES: Multilevel cervical spondylosis with prominent marginal osteophytes. Mild disc space narrowing at the C5-6 and C6-7 levels with a circumferential disc bulge. No significant spinal canal or neural foraminal stenosis. Bilateral multilevel mild to moderate facet arthropathy, more pronounced at the C3-4 level on the right side. SOFT TISSUES: The prevertebral soft tissues are within normal limits. There are secretions in the right fossa of Rosenmuller. There is a 3 x 2.6 x 1.7 cm partially calcified exophytic hypodense nodule in the lower pole of the right lobe of the thyroid. BONES: No acute fracture or aggressively appearing osseous lesion. IMPRESSION: No acute cervical spine abnormality. Multilevel degenerative disc disease and facet arthropathy in the cervical spine. Small partially calcified exophytic hypodense nodule at the lower pole of the right lobe of the thyroid. Recommend sonographic correlation. /[place] DICTATED BY: RITA ASTUDILLO Jr., MD DATE: 01/06/252335 ELECTRONICALLY SIGNED BY: RITA ASTUDILLO Jr., MD DATE: 01/06/252335 DICTATED BY: RITA ASTUDILLO Jr., MD DATE: 01/09/251709 ELECTRONICALLY SIGNED BY: RITA ASTUDILLO Jr., MD DATE: 01/09/251709 REASON: Syncopal event resulting in ground level fall, fracture left ulnar ORDERING PHYSICIAN: BALJIT HUSAIN AGACNP PROCEDURE: ECHO CMP - ECHO 2-D COMPLETE APPROVED REPORT EXAM: Two-dimensional and M-mode echocardiogram with Doppler and color Doppler. INDICATION ICD: Syncopal event resulting in ground level fall, fracture left ulnar 2D Dimensions RVDd 3.6 cm LVEF(%) 53.5 (>50%) LVED Vol(simp.) 55.0 mL IVSd 0.9 (0.7-1.1cm) FS(%) 27 % LVES Vol(simp.) 23.0 mL LVDd 3.9 (3.8-5.6cm) LA (2D) 3.0 (1.6-4.0cm) LVEF(%, simp.) 57 % PWd 0.8 (0.7-1.1cm) Ao Root(2D) 2.7 (2.0-3.7cm) LA ESV INDEX (BP) 20.93 mL/m2 IVSs 1.1 cm LVOT diam 1.8 (1.8-2.4cm) LVDs 2.9 (2.5-4.0cm) IVC diam 1.3 cm PWs 1.0 cm Deformation Strain Apical 4 -17.8 % Apical 2 -16.6 % Apical 3 -18.7 % Global Strain -17.7 % M-Mode Dimensions EPSS 0.3 cm LA (MM) 3.2 (1.6-4.0cm) Ao Root(MM) 2.6 (2.0-3.7cm) Aortic Valve AoV Vmax 1.3 m/s Ao Peak GR 7.2 mmHg LVOT Vmax 0.9 m/s AoV VTI 0.3 m Ao Mean GR 4.4 mmHg LVOT VTI 0.22 m YAHIR (VMAX) 1.74 cm2 YAHIR (VTI) 1.9 cm2 Mitral Valve MV E Vmax 77.4 cm/s DECEL Time 206 ms MV A Vmax 107.5 cm/s P 1/2 T 36 ms E/A ratio 0.7 MVA (PHT) 6.1 cm2 TDI E/E' Medial 19.4 E/E' Lateral 17.4 Medial E' Peak V 4.00 cm/s Lateral E' Peak V 4.46 cm/s Pulmonary Valve PV Vmax 0.8 m/s PV VTI 0.20 m PV Mean GR 1.5 mmHg PV Peak GR 2.8 mmHg Tricuspid Valve TR Vmax 2.4 m/s RAP (EST) 3 mmHg RVSP 25.5 mmHg TR Peak GR 22.5 mmHg Left Ventricle The left ventricle is normal size. GLS -18.0% There is normal LV segmental wall motion. There is normal left ventricular wall thickness. The LVEF is > 55%. 3D volume EF 58% The left ventricular diastolic function is normal. Right Ventricle The right ventricle is normal size. The right ventricular systolic function is normal. Atria The left atrium size is normal. The right atrium size is normal. Aortic Valve Aortic valve is trileaflet, thickend with possible small vegetation on non coronary cusp. No aortic regurgitation is present. There is no aortic valvular stenosis. Mitral Valve The mitral valve is normal in structure. There is trace of mitral valve reg urgitation noted. There is no mitral valve stenosis. Tricuspid Valve The tricuspid valve is normal in structure. There is trace of tricuspid valve regurgitation noted. Pulmonic Valve Pulmonic valve is not well visualized. There is trace of pulmonic valvular regurgitation. Great Vessels The aortic root is normal in size. The IVC is normal in size and collapses >50% with inspiration. Pericardium There is no pericardial effusion. Other Information Quality : Adequate Conclusion The left ventricle is normal size. The LVEF is > 55% with normal LV segmental wall motion. The left ventricular diastolic function is normal. The right ventricular systolic function is normal. Both atria are normal in size. Aortic valve is trileaflet, thickend with possible small vegetation on non coronary cusp. There is no pericardial effusion. Consider SLADE if clinically indicated. REASON: FALL, AMS ORDERING PHYSICIAN: DONATO GUERRERO MD PROCEDURE: HEAD WO - CT HEAD/BRAIN W/O CONTRAST EXAM: CT Head without IV contrast. CLINICAL HISTORY: Fall, AMS. TECHNIQUE: Axial computed tomography images of the head/brain without intravenous contrast. COMPARISON: None. FINDINGS: BRAIN: No evidence of acute hemorrhage, midline shift, or extra-axial collections. Atrophy. Periventricular hypodensities, suggestive of mild to moderate chronic ischemic changes secondary to small vessel disease. VENTRICLES: No hydrocephalus. ORBITS: The orbits are unremarkable. SINUSES AND MASTOIDS: The paranasal sinuses and mastoid air cells are clear. BONES: No fracture. SOFT TISSUES: Unremarkable. IMPRESSION: No acute intracranial abnormality. Mild to moderate chronic ischemic changes secondary to small vessel disease. /[place] DICTATED BY: RITA ASTUDILLO Jr., MD DATE: 01/06/25 ELECTRONICALLY SIGNED BY: RITA ASTUDILLO Jr., MD DATE: 01/06/259 DICTATED BY: JESUS NGUYEN MD DATE: 01/07/25 111 ELECTRONICALLY SIGNED BY: JESUS NGUYEN MD DATE: 01/07/25 182 DISCHARGE MEDICATIONS: Pt hemodynamically stable and afebrile at time of discharge. PCP notified of patients admission, hospital course and discharge. PHYSICAL EXAM: GENERAL: Lethargic, arousable, we will follow commands HEENT: EOMI, Sclera non icteric, moist mucosa NECK: Supple, no JVD, trachea midline LUNGS: Clear breath sounds bilaterally. No wheezes HEART: Regular rate and rhythm. Normal S1 and S2, without murmurs ABD: Abdomen soft, nontender. Bowel sounds present EXT: No clubbing cyanosis or edema, with arm sling and posterior arm cast to left arm NEURO: Lethargic FOLLOW-UP: Dr. Isaac Mendiola Follow-up with PCP in 2-3 days Orth Care appointment in 2-[address] Shahrzad Tam, for a short cast. RECOMMENDATIONS: See Discharge Instructions This case was seen and discussed with my supervising physician. More than 50 minutes spent on discharge process, including evaluation of the patient, discussion with nursing staff, medication reconciliation and follow-up appointments BALJIT HUSAIN [facility] Jan 09, 2025 16:41
--- NOTE | 2025-01-09 17:26 | NUR ---
DISCHARGE EDUCATION GIVEN TO PATIENT REGARDING FOLLOW UP AND INSTRUCTIONS. PT VERBALIZED UNDERSTANDING. IV CATHETER REMOVED AND INTACT. Addendum: 01/09/25 at 1742 by WINNIE HAMMOND LVN LVN patient taken down via wheelchair to private car. no further comments.
== END 2025-01-09 17:30 | disposition home or self-care (01) | DRG 563 ==
LOC: EDH 20:37 → EDHIP 20:38 → 3AH 01-07 03:15 → 4DH 01-07 03:24 → 3AH 01-07 03:33 → 4DH 01-07 04:46
PROVIDERS: ADMIT Internal Medicine; ATTEND Internal Medicine
PROC: 0PSJXZZ Reposition Left Radius, External Approach (ICD-10-PCS; principal; 2025-01-06)
DX: S52.612A Displaced fracture of left ulna styloid process, initial encounter for closed fracture (principal); N17.9 Acute kidney failure, unspecified; S52.502A Unspecified fracture of the lower end of left radius, initial encounter for closed fracture; I10 Essential (primary) hypertension; E86.9 Volume depletion, unspecified; E11.65 Type 2 diabetes mellitus with hyperglycemia; E78.00 Pure hypercholesterolemia, unspecified; W18.2XXA Fall in (into) shower or empty bathtub, initial encounter; Y93.E1 Activity, personal bathing and showering; Y92.009 Unspecified place in unspecified non-institutional (private) residence as the place of occurrence of the external cause
CPT/HCPCS: 25605; 36415; 70450; 71045; 72125; 73030; 73070; 73090; 73100; 73110; 76376; 80048; 80053; 82550; 82948; 83036; 83735; 84100; 84484; 85025; 93005; 93306; 93356; 93880; 94664; 96372; 99285; G0378; J1171; J1815; J1885; J2470; J3475; J3490; J7120